=== PATIENT | male | born 1955 | race Caucasian/White ===

== ENCOUNTER 2024-06-14 00:39 | Day surgery (SDC) | payer MEDICARE, SELFPAY ==
[2024-06-05 08:26] VITALS: BMI 34.3
[2024-06-14 10:06] VITALS: BP 159/58; PULSE 56; RESP 18; TEMP 36.6; O2SAT 100
--- NOTE | 2024-06-14 10:13 | P.PNAN_ITS ---
Anes - Initial Pre Proc Eval Procedure: Operation Date: 06/14/24 11:00 Proposed Procedures p Screening Colonoscopy - Toney Lott MD Date/Time: 06/14/24 10:13 Surgeon: Toney Lott MD Pre Op Diagnosis: Screening Patient Data Age: 68 Gender: M Height: 1.85 m Weight: 119.4 kg Last Vital Signs Temp 97.9 F 06/14/24 10:06 Pulse 56 L 06/14/24 10:06 Resp 18 06/14/24 10:06 BP 159/58 H 06/14/24 10:06 Pulse Ox 100 06/14/24 10:06 O2 Del Method Room Air 06/14/24 10:06 Allergies Allergy/AdvReac Type Severity Reaction Status Date / Time adhesive AdvReac Intermediate Blister Verified 06/14/24 10:03 Home Medications ?Medication ?Instructions ?Recorded ?Confirmed ?Type latanoprost 0.005 % eye drops 1 drp EACH EYE HS 06/05/24 06/14/24 History magwell magnesium triple complex 06/05/24 History simvastatin 20 mg tablet 20 mg PO DAILY 06/05/24 06/14/24 History Patient hx anesthesia problems: none Family hx anesthesia problems: none Results Review: All pre-operative results and documents have been reviewed as part of the pre- operative evaluation. [facility] Past Medical History Medical History (Updated 06/14/24 @ 10:29 by Toney Lott MD) Colon cancer screening Family History Family History (Updated 03/12/10 @ 11:15 by DOCTOR UNKNOWN) Other Family history of lung cancer Family history of malignant neoplasm of brain Social History Social History Smoking status: Former smoker Tobacco type: cigarettes and cigars Alcohol intake: current Drinks per week: 12 Substance use: never Substance use type: does not use Living arrangements: with family Spiritual care concerns: No Anes - Eval Final PreProcedure Day of Procedure 06/14/24 10:13 Patient weight: obese Heart: regular rate and rhythm Lungs: clear to auscultation Airway: Mallampati scale class II Neurological: alert and oriented Last oral intake: >/= 8 hours ASA classification: II Emergent: no Anesthetic plan: proceed Anesthesia type and monitoring: general GIVS and standard monitoring Results Review: All pre-operative results and documents have been reviewed as part of the pre- operative evaluation. Informed Consent: The patient's anesthetic plan and its attendant risks and benefits were discussed with the patient/family/POA. Questions were solicited and answers provided to the satisfaction of the patient/family/POA.
[2024-06-14] MEDS: LACTATED RINGERS 1,000 ML 150 ML IV CONT (10:19)
--- NOTE | 2024-06-14 10:28 | PM.HPGS ---
History of Present Illness History of Present Illness Consent: Risks, benefits, and alternatives have been discussed and questions answered. Patient agrees to proceed with procedure. Chief complaint: Screening Narrative: Ziggy Villeda is a 68 year old male here for screening colonoscopy, last one 10 years ago Review of Systems Review of Systems: All systems reviewed & are unremarkable except as noted in HPI and below PMFSH Past Medical History Medical History (Updated 06/14/24 @ 10:29 by Toney Lott MD) Colon cancer screening Family History Family History (Updated 03/12/10 @ 11:15 by DOCTOR UNKNOWN) Other Family history of lung cancer Family history of malignant neoplasm of brain Social History Social History Smoking status: Former smoker Tobacco type: cigarettes and cigars Alcohol intake: current Drinks per week: 12 Substance use: never Substance use type: does not use Living arrangements: with family Spiritual care concerns: No Meds Home Medications and Allergies Home Medications ?Medication ?Instructions ?Recorded ?Confirmed ?Type latanoprost 0.005 % eye drops 1 drp EACH EYE HS 06/05/24 06/14/24 History magwell magnesium triple complex 06/05/24 History simvastatin 20 mg tablet 20 mg PO DAILY 06/05/24 06/14/24 History Allergies Allergy/AdvReac Type Severity Reaction Status Date / Time adhesive AdvReac Intermediate Blister Verified 06/14/24 10:03 Vital Signs Vital Signs - 24 hr 06/14/24 10:06 Temperature 97.9 F Pulse Rate 56 L Respiratory Rate 18 Blood Pressure 159/58 H Pulse Oximetry 100 Oxygen Delivery Room Air Exam Const: General: comfortable and no acute distress HENMT: Face/Nose/Sinus: Normal nares present Eyes: General: appearance normal, both eyes and all related structures Neck: Neck: no JVD Resp: Auscultation: clear to auscultation bilaterally Cardio: Rate: regular rate Rhythm: regular rhythm GI: Inspection: non-distended GI Palp: Yes Soft to palpation Skin: General skin exam: normal color Neuro: General: gait normal Speech: normal speech Extrem: General: normal to inspection Psych: Mental Status: mental status grossly normal Assessment and Plan Assessment and plan (1) Colon cancer screening: Code(s): Z12.11 - Encounter for screening for malignant neoplasm of colon Status: Acute Assessment and Plan: colonoscopy
[2024-06-14 10:45] VITALS: BP 112/73; PULSE 56; RESP 23; O2SAT 97
[2024-06-14 10:55] VITALS: BP 131/76; PULSE 57; RESP 20; O2SAT 98
[2024-06-14 11:05] VITALS: BP 136/87; PULSE 59; RESP 18; O2SAT 97
== END 2024-06-14 11:12 | disposition home or self-care (01) ==
PROVIDERS: PCP Nurse Practitioner Family; Referring Provider Nurse Practitioner Family; Visit Provider Internal Medicine Gastroenterology
PROC: 0DJD8ZZ Inspection of Lower Intestinal Tract, Via Natural or Artificial Opening Endoscopic (ICD-10-PCS; CPT 45378; principal; 2024-06-14 11:00)
DX: Z12.11 Encounter for screening for malignant neoplasm of colon (principal); D12.3 Benign neoplasm of transverse colon; D12.4 Benign neoplasm of descending colon; K62.1 Rectal polyp; K63.5 Polyp of colon; E66.9 Obesity, unspecified; Z68.34 Body mass index [BMI] 34.0-34.9, adult; Z87.891 Personal history of nicotine dependence; Z80.1 Family history of malignant neoplasm of trachea, bronchus and lung; Z80.8 Family history of malignant neoplasm of other organs or systems
CPT/HCPCS: 45385; 88305; J2704; J7120